=== PATIENT | female | born 1965 | race Caucasian/White ===

== ENCOUNTER 2017-07-07 16:52 | Emergency (ER) | payer BC ==
[2017-07-07] MEDS ORDERED: ONDANSETRON HCL IV 4 MG/2 ML VIAL IVP ONE (16:55)
[2017-07-07] MEDS ORDERED: 0.9 % SODIUM CHLORIDE 1,000 ML BAG IV ONE (16:55)
--- NOTE | 2017-07-07 17:00 | Emergency Department Record ---
History of Present Illness - General Chief Complaint: Alcohol Intoxication Stated Complaint: INTOXICATION Time Seen by Provider: 07/07/17 16:54 Source: Patient Mode of Arrival: Ambulatory Limitations: No limitations - History of Present Illness Initial Comments: 51 yo female presents by EMS with intoxication. She was at the [facility] since about 1pm. She admits to drinking beer and fireballs. She felt too intoxicated to drive. She developed nausea and dizziness. She denies any injury. She denies any other co ingestions. EMS reported no signs of injury as well. MD Complaint: Alcohol intoxication -: Hour(s) Previous Visits for Alcohol Intoxication?: Yes Recent Trauma: No Associated Symptoms: Nausea, Vomiting Treatments Prior to Arrival: None - [place] Coma Scale Eye Response: (4) Open spontaneously Motor Response: (6) Obeys commands Verbal Response: (5) Oriented [place] Total: 15 - Related Data Home Medications Medication Instructions Recorded Confirmed Last Taken Fluoxetine HCl [Prozac] 40 mg PO DAILY 07/07/17 07/07/17 1 Day Ago ~07/06/17 Levothyroxine Sodium 200 mcg PO DAILY 07/07/17 07/07/17 1 Day Ago ~07/06/17 Allergies Allergy/AdvReac Type Severity Reaction Status Date / Time No Known Drug Allergies Allergy Verified 07/07/17 17:03 Review of Systems Constitutional: Denies: Chills, Fever, Malaise, Weakness Eyes: Denies: Eye discharge ENT: Denies: Congestion, Throat pain Respiratory: Denies: Cough, Dyspnea, Hemoptysis, Wheezes Cardiovascular: Denies: Chest pain, Palpitations, Syncope Endocrine: Denies: Fatigue Gastrointestinal: Reports: Nausea, Vomiting. Denies: Diarrhea Genitourinary: Denies: Dysuria, Frequency, Urgency Musculoskeletal: Denies: Arthralgia, Back pain, Myalgia, Neck pain Skin: Denies: Bruising, Change in color, Pruritus Neurological: Denies: Confusion, Headache, Numbness, Weakness Psychiatric: Denies: Anxiety Hematological/Lymphatic: Denies: Blood Clots, Easy bleeding, Easy bruising, Swollen glands Physical Exam - General General Appearance: Alert, Cooperative - Head Head exam: Atraumatic, Normocephalic, Normal inspection Head exam detail: negative: Abrasion, Contusion, General tenderness, Hematoma, Laceration - Eye Eye exam: Normal appearance, PERRL. negative: Conjunctival injection, Scleral icterus Pupils: Normal accommodation - ENT ENT exam: Normal exam, Mucous membranes moist Ear exam: Normal external inspection Nasal Exam: Normal inspection Mouth exam: Normal external inspection Teeth exam: Normal inspection - Neck Neck exam: Normal inspection, Full ROM. negative: Tenderness - Respiratory Respiratory exam: Normal lung sounds bilaterally. negative: Respiratory distress - Cardiovascular Cardiovascular Exam: Regular rate, Normal rhythm, Normal heart sounds - GI/Abdominal GI/Abdominal exam: Soft. negative: Tenderness - Rectal Rectal exam: Deferred - exam: Deferred - Extremities Extremities exam: Normal inspection, Full ROM, Normal capillary refill. negative: Tenderness - Back Back exam: Reports: Normal inspection, Full ROM. Denies: Muscle spasm, Rash noted, Tenderness - Neurological Neurological exam: Alert, Normal gait, Oriented X3 - Psychiatric Psychiatric exam: Normal affect, Normal mood - Skin Skin exam: Dry, Intact, Normal color, Warm Course - Reevaluation(s) Reevaluation #1: 07/07/17 18:08 The labs were reviewed The CBC demonstrated a WBC of 12 The K was 3.1, HCO3 20, AG of 17 The Alcohol was .134 07/07/17 18:21 The nausea is well controlled at this time 07/07/17 18:33 The case was signed out to Dr Kumar for further observation for intoxication and potassium replacement Medical Decision Making - Lab Data Result diagrams: 07/07/17 17:20 07/07/17 17:20 Disposition Disposition: Discharge Clinical Impression: Alcohol intoxication, Hypokalemia Disposition: Home, Self-Care Instructions: Hypokalemia (ED), Alcohol Intoxication (ED) Additional Instructions: Rest and stay well hydrated Return to the ER if any concerns, nausea, vomiting or concerns Forms: Patient Portal Access Quality - Quality Measures Quality Measures: N/A - Blood Pressure Screening Does Patient Have Any of the Following: No Blood Pressure Classification: Hypertensive Reading Systolic Measurement: 155 Diastolic Measurement: 92 Screening for High Blood Pressure: < Pre-Hypertensive BP, F/U Documented > [ G8950] Pre-Hypertensive Follow-up Interventions: Referral to alternative/primary care provider.
[2017-07-07 17:28] LABS: BASO % 0.4 % (0-6); EOS % 1.9 % (0-6); GRAN % 62.3 % (47-80); HEMATOCRIT 35.4 % (35.0-47.0); LYMPH % 26.9 % (16-45); MEAN CELL VOLUME 91.7 fl (81-97); MEAN CORPUSCULAR HGB CONC 31.1 g/dl (32-36); MEAN PLATELET VOLUME 12.5 fl (7.4-10.4); MONO % 8.5 % (0-9); PLATELET COUNT 213 K/uL (130-400); RED BLOOD COUNT 3.86 M/uL (3.80-5.40); WHITE BLOOD COUNT W/O DIFF 12.9 K/uL (4.2-12.2)
[2017-07-07 17:42] LABS: MEAN CORPUSCULAR HEMOGLOBIN 28.4 pg (27-33)
[2017-07-07 17:49] LABS: BLOOD UREA NITROGEN 7 mg/dL (6-20); CREATININE 0.7 mg/dL (0.5-0.9); EST GLOMERULAR FILTRATION RATE > 60 mL/min
[2017-07-07 17:51] LABS: ALCOHOL 0.134 g/dL (0-0.010)
[2017-07-07 17:52] LABS: GLUCOSE,RANDOM 138 mg/dL (74-109)
[2017-07-07] MEDS ORDERED: SOD CHLOR 0.9% WITH KCL 40MEQ 40 MEQ/1,000 ML IV.SOLN IV ONE (18:08)
--- NOTE | 2017-07-07 19:48 | Emergency Department Record ---
History of Present Illness - General Chief Complaint: Alcohol Intoxication Stated Complaint: INTOXICATION Time Seen by Provider: 07/07/17 16:54 Source: Patient Mode of Arrival: Ambulatory Limitations: No limitations - History of Present Illness Last Drink: Just [employer] -: Hour(s) Previous Visits for Alcohol Intoxication?: Yes Recent Trauma: No Associated Symptoms: Nausea, Vomiting Treatments Prior to Arrival: None - [place] Coma Scale Eye Response: (4) Open spontaneously Motor Response: (6) Obeys commands Verbal Response: (5) Oriented [place] Total: 15 - Related Data Home Medications Medication Instructions Recorded Confirmed Last Taken Fluoxetine HCl [Prozac] 40 mg PO DAILY 07/07/17 07/07/17 1 Day Ago ~07/06/17 Levothyroxine Sodium 200 mcg PO DAILY 07/07/17 07/07/17 1 Day Ago ~07/06/17 Allergies Allergy/AdvReac Type Severity Reaction Status Date / Time No Known Drug Allergies Allergy Verified 07/07/17 17:03 Travel Screening - Travel/Exposure Within Last 30 Days Have you traveled within the last 30 days?: No - Travel/Exposure Within Last Year Have you traveled outside the [place] in the last year?: No - Additonal Travel Details Have you been exposed to anyone with a communicable illness?: No - Travel Symptoms Symptom Screening: None Review of Systems Constitutional: Denies: Chills, Fever, Malaise, Weakness Eyes: Denies: Eye discharge ENT: Denies: Congestion, Throat pain Respiratory: Denies: Cough, Dyspnea, Hemoptysis, Wheezes Cardiovascular: Denies: Chest pain, Palpitations, Syncope Endocrine: Denies: Fatigue Gastrointestinal: Reports: Nausea, Vomiting. Denies: Diarrhea Genitourinary: Denies: Dysuria, Frequency, Urgency Musculoskeletal: Denies: Arthralgia, Back pain, Myalgia, Neck pain Skin: Denies: Bruising, Change in color, Pruritus Neurological: Denies: Confusion, Headache, Numbness, Weakness Psychiatric: Denies: Anxiety Hematological/Lymphatic: Denies: Blood Clots, Easy bleeding, Easy bruising, Swollen glands Past Medical History - SOCIAL HISTORY Smoking Status: Current every day smoker Alcohol Use: Occasional Drug Use: Occasional Drug Use Detail:: Marijuana - RESPIRATORY Hx Respiratory Disorders: Yes Hx COPD: Yes - CARDIOVASCULAR Hx Cardio Disorders: No - NEURO Hx Neuro Disorders: No - GI Hx GI Disorders: No - Hx Genitourinary Disorders: No - ENDOCRINE Hx Diabetes: No Hx Thyroid Disease: Yes - MUSCULOSKELETAL Hx Arthritis: Yes - PSYCH Hx Anxiety: Yes Hx Depression: Yes - HEMATOLOGY/ONCOLOGY Hx Hematology/Oncology Disorders: No Family Medical History Any Significant Family History?: Yes Physical Exam - General Limitations: No limitations Course Vital Signs 07/07/17 07/07/17 07/07/17 16:55 17:40 18:17 Pulse Rate 65 Pulse Rate [ 66 58 L Pulse Ox Probe] Respiratory 28 H 18 18 Rate Blood Pressure 155/92 Pulse Ox 99 95 100 - Reevaluation(s) Reevaluation #1: 07/07/17 19:46 Patient reassessed, reports that she is feeling much better. Speech is clear, patient is somewhat confused about her timeline of events, but appears clinically sober on examination. Patient's mother at the bedside is with her, and will take her home tonight. Patient appears stable for discharge at this time. Medical Decision Making - Lab Data Result diagrams: 07/07/17 17:20 07/07/17 17:20 Lab Results 07/07/17 07/07/17 Range/Units 17:20 17:20 WBC 12.9 H (4.2-12.2) K/uL RBC 3.86 (3.80-5.40) M/uL Hgb 11.0 L (11.6-16.0) gm/dl Hct 35.4 (35.0-47.0) % MCV 91.7 (81-97) fl MCH 28.4 (27-33) pg MCHC 31.1 L (32-36) g/dl RDW 15.0 H (11.5-14.5) % Plt Count 213 (130-400) K/uL MPV 12.5 H (7.4-10.4) fl Gran % 62.3 (47-80) % Lymphocytes % 26.9 (16-45) % Monocytes % 8.5 (0-9) % Eosinophils % 1.9 (0-6) % Basophils % 0.4 (0-6) % Sodium 137 (136-145) mmol/L Potassium 3.1 L (3.4-4.5) mmol/L Chloride 100 (98-107) mmol/L Carbon Dioxide 20.0 L (22-29) mmol/L Anion Gap 17.0 H (7-16) BUN 7 (6-20) mg/dL Creatinine 0.7 (0.5-0.9) mg/dL Estimated GFR > 60 mL/min Random Glucose 138 H (74-109) mg/dL Calcium 8.8 (8.6-10.0) mg/dL Ethyl Alcohol 0.134 H (0-0.010) g/dL Disposition Disposition: Discharge Clinical Impression: Hypokalemia Alcohol intoxication Qualifiers: Complication of substance-induced condition: uncomplicated Qualified Code(s): F10.920 - Alcohol use, unspecified with intoxication, uncomplicated Disposition: Home, Self-Care Instructions: Hypokalemia (ED), Alcohol Intoxication (ED) Additional Instructions: Rest and stay well hydrated Return to the ER if any concerns, nausea, vomiting or concerns Forms: Patient Portal Access Time of Disposition: 19:48 Quality - Quality Measures Quality Measures: N/A - Blood Pressure Screening Does Patient Have Any of the Following: No Blood Pressure Classification: Hypertensive Reading Systolic Measurement: 149 Diastolic Measurement: 92 Screening for High Blood Pressure: < First Hypertensive BP, F/U Documented > [ G8950] First Hypertensive Follow-up Interventions: Referral to alternative/primary care provider.
== END 2017-07-07 20:10 | disposition home or self-care (01) ==
LOC: ER 16:52
DX: E87.6 Hypokalemia (principal); R11.2 Nausea with vomiting, unspecified; F10.920 Alcohol use, unspecified with intoxication, uncomplicated; Y90.6 Blood alcohol level of 120-199 mg/100 ml; Z87.891 Personal history of nicotine dependence
CPT/HCPCS: 99284 ×2; 96365; 96375; 85025; 80048; G0480; J2405; 80320; J7030

== ENCOUNTER 2019-06-23 13:26 | Emergency (ER) | payer BC ==
[2019-06-23] MEDS ORDERED: HYDROCODONE/APAP 5/325MG TABLET PO ONE (13:47)
[2019-06-23] MEDS ORDERED: CLINDAMYCIN 600MG/50ML PREMIX 600 MG/50 ML BAG IVPB ONE (13:47)
--- NOTE | 2019-06-23 13:52 | Emergency Department Record ---
History of Present Illness - General Chief complaint: Facial Swelling Stated complaint: FACIAL INFECTION Time Seen by Provider: 06/23/19 13:39 Source: Patient Mode of Arrival: Ambulatory Limitations: No limitations - History of Present Illness Initial Comments: 53 yo female presents with left upper lip swelling, tenderness and draining pus. She reports the onset over the last 2 days. She started Augmentin yesterday with slight worsening. She denies an left eye pain, no lid swelling. She squeezed the lip and got pus out. No warmth or redness to the face. No dental pain. the area is the lateral upper left lip. PCP is Dasha Charles MD Complaint: Facial swelling Onset/Timin -: Days(s) Symptoms: Itching, Facial swelling, Lip swelling Severity: Moderate Treatment Prior to Arrival: Other (Antibiotic) Previous Allergy History: None - Related Data Previous Rx's Medication Instructions Recorded Clindamycin HCl [Cleocin HCl] 300 mg PO Q6H #28 capsule 06/23/19 Hydrocodone/APAP 5/325Mg [Smith 1 each PO Q6H #8 tab 06/23/19 5Mg/325Mg] Allergies Allergy/AdvReac Type Severity Reaction Status Date / Time No Known Drug Allergies Allergy Unverified 06/22/19 11:01 Travel Screening - Travel/Exposure Within Last 30 Days Have you traveled within the last 30 days?: No - Travel/Exposure Within Last Year Have you traveled outside the [place] in the last year?: No - Additonal Travel Details Have you been exposed to anyone with a communicable illness?: No - Travel Symptoms Symptom Screening: None Review of Systems Constitutional: Denies: Chills, Fever, Malaise, Weakness Eyes: Denies: Eye discharge ENT: Reports: Other (lip swelling). Denies: Congestion, Dental pain, Ear pain, Throat pain Cardiovascular: Denies: Chest pain Endocrine: Denies: Fatigue Gastrointestinal: Denies: Abdominal pain, Diarrhea, Nausea, Vomiting Genitourinary: Denies: Dysuria, Urgency Musculoskeletal: Denies: Arthralgia, Back pain, Myalgia Skin: Reports: Other. Denies: Bruising, Change in color, Rash Neurological: Denies: Headache Psychiatric: Denies: Anxiety Hematological/Lymphatic: Denies: Easy bleeding, Easy bruising Past Medical History - SOCIAL HISTORY Smoking Status: Current every day smoker Alcohol Use: Occasional Drug Use: Heavy Drug Use Detail:: Marijuana - RESPIRATORY Hx Respiratory Disorders: Yes Hx COPD: Yes - CARDIOVASCULAR Hx Cardio Disorders: No - NEURO Hx Neuro Disorders: No - GI Hx GI Disorders: No - Hx Genitourinary Disorders: No - ENDOCRINE Hx Diabetes: No Hx Thyroid Disease: Yes - MUSCULOSKELETAL Hx Arthritis: Yes - PSYCH Hx Anxiety: Yes Hx Depression: Yes - HEMATOLOGY/ONCOLOGY Hx Hematology/Oncology Disorders: No Family Medical History Any Significant Family History?: No Physical Exam - General General Appearance: Alert, Oriented x3, Cooperative, No acute distress Limitations: No limitations - Head Head exam: Atraumatic, Normal inspection - Eye Eye exam: Normal appearance, PERRL. negative: Conjunctival injection, Scleral icterus - ENT ENT exam: Mucous membranes moist, Normal orophraynx, TM's normal bilaterally. negative: Normal exam, Mucous membranes dry Ear exam: Normal external inspection Nasal Exam: Normal inspection Mouth exam: Tongue normal, Other (mild lateral left upper lip swelling, pus is expressed with firm squeeze). negative: Normal external inspection, Drooling, Laceration, Muffled voice, Tongue elevation, Trismus Teeth exam: Normal inspection Throat exam: Normal inspection - Neck Neck exam: Normal inspection, Full ROM. negative: Lymphadenopathy, Tenderness - Respiratory Respiratory exam: Normal lung sounds bilaterally. negative: Respiratory distress - Extremities Extremities exam: Normal inspection - Neurological Neurological exam: Alert, Oriented X3 - Psychiatric Psychiatric exam: Normal affect, Normal mood - Skin Skin exam: Dry, Intact, Normal color, Warm Course Vital Signs 06/23/19 13:31 Temperature 98.1 F Pulse Rate 98 H Respiratory 16 Rate Blood Pressure 170/98 Pulse Ox 97 - Reevaluation(s) Reevaluation #1: 06/23/19 13:51 The area involved is small on the left upper lateral lip The area was compressed and pus obtained. Culture obtained The area was compressed until cleared of pus and only blood It seemed to be a decompressed abscess without overlying cellulitis at this time Overall the findings are mild, she is a good outpatient candidate She was given home care instructions, changed to Clindamycin and culture obtained 06/23/19 14:36 Disposition Disposition: Discharge Clinical Impression: Abscess of lip Disposition: Home, Self-Care Condition: (1) Good Instructions: Abscess (ED) Additional Instructions: Apply moist heat or shower every 4-6 hours then continued to try to drain any pus Return to the ER if you have fever, increased swelling or any new concerns Take the Clindamyicn every 6 hours Prescriptions: Clindamycin HCl [Cleocin HCl] 300 mg PO Q6H #28 capsule Hydrocodone/APAP 5/325Mg [Smith 5Mg/325Mg] 1 each PO Q6H #8 tab Forms: Patient Portal Access Time of Disposition: 14:37 Quality - Quality Measures Quality Measures: N/A - Blood Pressure Screening Does Patient Have Any of the Following: No Blood Pressure Classification: Hypertensive Reading Systolic Measurement: 170 Diastolic Measurement: 98 Screening for High Blood Pressure: < Pre-Hypertensive BP, F/U Documented > [G8950] Pre-Hypertensive Follow-up Interventions: Referral to alternative/primary care provider.
== END 2019-06-23 14:42 | disposition home or self-care (01) ==
LOC: ER 13:26
DX: K13.0 Diseases of lips (principal); J44.9 Chronic obstructive pulmonary disease, unspecified; F17.210 Nicotine dependence, cigarettes, uncomplicated
CPT/HCPCS: 96365; 99284

== ENCOUNTER 2019-06-30 16:02 | Emergency (ER) | payer BC ==
--- NOTE | 2019-06-30 16:21 | Emergency Department Record ---
History of Present Illness - General Chief Complaint: Dizziness Stated Complaint: DIZINESS,DIARRHEA Time Seen by Provider: 06/30/19 16:12 Source: Patient Mode of Arrival: Ambulatory Limitations: No limitations - History of Present Illness Initial Comments: 53 yo female presents with two days of diarrhea (3-4 times per day), feeling weak, and dizzy at times. She was treated one week ago for a lip infection. The lip infection is resolved after treatment with Clindamyin (Culture was positive for MRSA S to Clindamycin). No fever. No headache. She has nausea but no vomiting. No abdominal pain. No blood in the diarrhea. No vision changes, no speech changes, no ataxia, no numbness, tingling or weakness. MD Complaint: Dizziness, Lightheadedness, Other (Diarrhea) Onset/Timin -: Days(s) Timing: Gradual onset Description: Nausea History of Trauma: No - [place] Coma Scale Eye Response: (4) Open spontaneously Motor Response: (6) Obeys commands Verbal Response: (5) Oriented [place] Total: 15 - Symptoms of Stroke Symptoms of stroke: Dizziness (Worse when looking left) - Related Data Previous Rx's Medication Instructions Recorded Clindamycin HCl [Cleocin HCl] 300 mg PO Q6H #28 capsule 06/23/19 Meclizine HCl [Antivert] 25 mg PO Q8H #15 tablet 06/30/19 Ondansetron [Zofran Odt] 4 mg PO Q8H #15 tab.rapdis 06/30/19 Allergies Allergy/AdvReac Type Severity Reaction Status Date / Time No Known Drug Allergies Allergy Verified 06/30/19 16:12 Travel Screening - Travel/Exposure Within Last 30 Days Have you traveled within the last 30 days?: No - Travel/Exposure Within Last Year Have you traveled outside the [place] in the last year?: No - Additonal Travel Details Have you been exposed to anyone with a communicable illness?: No - Travel Symptoms Symptom Screening: None Review of Systems Constitutional: Denies: Chills, Fever, Malaise, Weakness Eyes: Denies: Eye discharge, Eye pain, Photophobia, Vision change ENT: Denies: Congestion, Epistaxis, Throat pain Respiratory: Denies: Cough, Dyspnea Cardiovascular: Denies: Chest pain, Palpitations, Syncope Endocrine: Denies: Fatigue, Polydipsia, Polyuria Gastrointestinal: Reports: Diarrhea, Nausea. Denies: Abdominal pain, Const ipation, Hematemesis, Hematochezia, Melena, Vomiting Genitourinary: Denies: Dysuria, Urgency Musculoskeletal: Denies: Arthralgia, Back pain, Myalgia Skin: Denies: Bruising, Change in color, Rash Neurological: Reports: Vertigo. Denies: Abnormal gait, Confusion, Headache, Numbness, Paresthesias, Tingling, Tremors, Weakness Psychiatric: Denies: Anxiety Hematological/Lymphatic: Denies: Easy bleeding, Easy bruising Past Medical History - SOCIAL HISTORY Smoking Status: Current every day smoker Alcohol Use: Occasional Drug Use: Occasional Drug Use Detail:: Marijuana - RESPIRATORY Hx Respiratory Disorders: Yes Hx COPD: Yes - CARDIOVASCULAR Hx Cardio Disorders: No - NEURO Hx Neuro Disorders: No - GI Hx GI Disorders: No - Hx Genitourinary Disorders: No - ENDOCRINE Hx Diabetes: No Hx Thyroid Disease: Yes - MUSCULOSKELETAL Hx Arthritis: Yes - PSYCH Hx Anxiety: Yes Hx Depression: Yes - HEMATOLOGY/ONCOLOGY Hx Hematology/Oncology Disorders: No Family Medical History Any Significant Family History?: Yes Physical Exam - General General Appearance: Alert, Oriented x3, Cooperative, No acute distress Limitations: No limitations - Head Head exam: Atraumatic, Normal inspection - Eye Eye exam: Normal appearance, PERRL, EOMI. negative: Conjunctival injection, Nystagmus, Periorbital swelling - ENT ENT exam: Normal exam, Mucous membranes moist, Normal orophraynx Ear exam: Normal external inspection Nasal Exam: Normal inspection Mouth exam: Normal external inspection - Neck Neck exam: Normal inspection - Respiratory Respiratory exam: Normal lung sounds bilaterally. negative: Respiratory distress - Cardiovascular Cardiovascular Exam: Regular rate, Normal rhythm, Normal heart sounds - GI/Abdominal GI/Abdominal exam: Soft. negative: Distended, Guarding, Tenderness - Rectal Rectal exam: Deferred - exam: Deferred - Extremities Extremities exam: Normal inspection - Back Back exam: Denies: CVA tenderness (R), CVA tenderness (L) - Neurological Neurological exam: Alert, CN II-XII intact, Normal gait, Oriented X3, Reflexes normal, Other (Normal CHOLO, Normal FTN, No PND). negative: Abnormal gait, Altered, Motor sensory deficit - Psychiatric Psychiatric exam: Normal affect, Normal mood. negative: Agitated, Anxious - Skin Skin exam: Dry, Intact, Normal color, Warm. negative: Diaphoretic Course Vital Signs 06/30/19 16:05 Temperature 98.9 F Pulse Rate 77 Respiratory 18 Rate Blood Pressure 163/98 Pulse Ox 98 - Reevaluation(s) Reevaluation #1: 06/30/19 16:58 The labs were reviewed No acute abnormalities on the CBC or CMP 06/30/19 17:04 We discussed the results of the tests and questions were answered. The patient is doing well and is comfortable with DC. We discussed at length reasons to immediately return to the ED as well as close follow up. The patient will call the PCP for close follow up of this ED visit to review this visit and the tests performed DC vitals were reviewed. Medical Decision Making - Lab Data Result diagrams: 06/30/19 16:25 06/30/19 16:25 Disposition Disposition: Discharge Clinical Impression: Diarrhea Qualifiers: Diarrhea type: unspecified type Qualified Code(s): R19.7 - Diarrhea, unspecified Disposition: Home, Self-Care Condition: (1) Good Instructions: Acute Diarrhea (ED), Dizziness (ED) Additional Instructions: Review this ER visit and the tests performed with your family doctor Call your doctor for the next available follow up appointment Return to the ER for a recheck if worse, any new concerns or questions Take the prescriptions provided as directed Prescriptions: Meclizine HCl [Antivert] 25 mg PO Q8H #15 tablet Ondansetron [Zofran Odt] 4 mg PO Q8H #15 tab.rapdis Forms: Patient Portal Access Time of Disposition: 17:04 Quality - Quality Measures Quality Measures: N/A - Blood Pressure Screening Does Patient Have Any of the Following: No Blood Pressure Classification: Pre-Hypertensive BP Reading Systolic Measurement: 155 Diastolic Measurement: 84 Screening for High Blood Pressure: < Pre-Hypertensive BP, F/U Documented > [G8950] Pre-Hypertensive Follow-up Interventions: Referral to alternative/primary care provider.
[2019-06-30] MEDS: 0.9 % SODIUM CHLORIDE 1,000 ML BAG IV ONE (16:25)
[2019-06-30] MEDS: ONDANSETRON HCL IV 4 MG/2 ML VIAL IVP ONE (16:26)
[2019-06-30] MEDS: MECLIZINE 25 MG TABLET PO ONE (16:27)
[2019-06-30 16:35] LABS: ABSOLUTE NEUTROPHIL COUNT 6.27; BASO % 0.2 % (0-6); EOS % 1.6 % (0-6); GRAN % 73.8 % (47-80); HEMATOCRIT 44.6 % (35.0-47.0); HEMOGLOBIN 13.9 gm/dl (11.6-16.0); LYMPH % 16.5 % (16-45); MEAN CELL VOLUME 100.7 fl (81-97); MEAN CORPUSCULAR HEMOGLOBIN 31.4 pg (27-33); MEAN CORPUSCULAR HGB CONC 31.2 g/dl (32-36); MEAN PLATELET VOLUME 13.1 fl (7.4-10.4); MONO % 7.9 % (0-9); PLATELET COUNT 152 K/uL (130-400); RED BLOOD COUNT 4.43 M/uL (3.80-5.40); RED CELL DISTRIBUTION WIDTH 16.1 % (11.5-14.5); WHITE BLOOD COUNT W/O DIFF 8.5 K/uL (4.2-12.2)
[2019-06-30 16:45] LABS: BLOOD UREA NITROGEN 8 mg/dL (6-20); CREATININE 0.8 mg/dL (0.5-0.9); EST GLOMERULAR FILTRATION RATE > 60 mL/min
[2019-06-30 16:48] LABS: GLUCOSE,RANDOM 104 mg/dL (74-109)
== END 2019-06-30 17:14 | disposition home or self-care (01) ==
LOC: ER 16:02
DX: R19.7 Diarrhea, unspecified (principal); R53.1 Weakness; F17.210 Nicotine dependence, cigarettes, uncomplicated; R11.0 Nausea; J44.9 Chronic obstructive pulmonary disease, unspecified
CPT/HCPCS: 80048; 85025; 96361; 96374; 99284; J2405; J7030

== ENCOUNTER 2019-10-03 09:04 | Emergency (ER) | payer SELFPAY ==
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
== END 2019-10-03 10:05 | disposition home or self-care (01) ==
LOC: ER 09:04
DX: Z48.02 Encounter for removal of sutures (principal)
CPT/HCPCS: 99281